=== PATIENT | female | born 1945 | race Two or more races ===

== ENCOUNTER 2016-09-06 13:49 | Inpatient (IN) | payer MEDICARE, MEDICAID ==
[~2016-09-06] VITALS: Ht 165.1 cm; Wt 61.2 kg
--- NOTE | 2016-09-06 22:45 | NUR ---
Received patient from [facility] sleeping, in a stable condition. Dx: Left hip fracture secondary to a fall. Accompanied by son, Derik. Patient has no s/s of distress, anxiety; denies pain at this time. Per son, patient took evening meds before discharge at [facility]. Admission care done to keep patient comfortable. Patient went back to sleep immediately after change of clothes, linen, diaper. Safety precautions likewise in place. V/S taken: 156/81, 71, 18, 97%. 97.8 F. Will continue to monitor.
[2016-09-06 23:24] VITALS: BP 156/81
--- NOTE | 2016-09-06 23:30 | NUR ---
Dr. Abreu made aware of patient's arrival. Ordered that med recon be done the next day and to leave medication list for checking/rechecking in the morning. Will endorse to day shift.
[2016-09-07] MEDS ORDERED: BLOO-360 IN (06:54)
[2016-09-07] MEDS ORDERED: ALBU2.5V7 IH (06:54)
[2016-09-07] MEDS ORDERED: METO-302 PO (06:54)
[2016-09-07] MEDS ORDERED: INSU100V28 SQ (06:54)
[2016-09-07] MEDS ORDERED: MAGN30OR PO (06:54)
[2016-09-07] MEDS ORDERED: MAG355OR18 PO (06:54)
[2016-09-07] MEDS ORDERED: ONDA4TAB5 IVP (06:54)
[2016-09-07] MEDS ORDERED: ASPI81TA2 PO (06:54)
[2016-09-07] MEDS ORDERED: ZOLP5TAB2 PO (06:54)
[2016-09-07] MEDS ORDERED: DULO30CA2 PO (06:54)
[2016-09-07] MEDS ORDERED: DEXT50DI8 IV (06:54)
[2016-09-07] MEDS ORDERED: ATOR40TA PO (06:54)
[2016-09-07] MEDS ORDERED: [UNRECOGNIZED DRUG - CODE] IV (06:54)
[2016-09-07] MEDS ORDERED: ENOX40DI SQ (06:54)
[2016-09-07] MEDS ORDERED: ACET-2154 PO (06:54)
[2016-09-07] MEDS ORDERED: HYDR-3651 PO (06:54)
[2016-09-07] MEDS ORDERED: ERGO2000 PO (06:54)
[2016-09-07] MEDS ORDERED: PANT40TA2 PO (06:54)
[2016-09-07] MEDS ORDERED: GABA100C PO ×3 (06:54)
[2016-09-07] MEDS ORDERED: ZINC113P2 TP (07:07)
[2016-09-07] MEDS ORDERED: [UNRECOGNIZED DRUG - CODE] IV (07:07)
--- NOTE | 2016-09-07 07:50 | NUR ---
Patient sleeping with no s/s of distress. Slept well throughout the night. Kept clean, dry and comfortable. No complaints of pain throughout the night. Admission procedure done. Safety measures in place. Monitored closely. TO obtained from Dr. Daniel around 0700. RBO. Med recon done. Endorsed accordingly.
--- NOTE | 2016-09-07 08:07 | NUR ---
Photos of skin assessment taken and placed in chart.
[2016-09-07 08:27] VITALS: BP 155/82
[2016-09-07] MEDS ORDERED: INSULIN REGULAR, HUMAN 300 UNIT/3 ML VIAL SQ PRN (10:00)
[2016-09-07] MEDS ORDERED: MAG HYDROX/AL HYDROX/SIMETH 30 ML LIQUID UDC PO PRN ×2 (10:00)
[2016-09-07] MEDS ORDERED: ONDANSETRON HCL 4 MG TABLET MC PRN (10:00)
[2016-09-07] MEDS ORDERED: ALBUTEROL SULFATE 2.5 MG/3 ML NEBU IH PRN (10:00)
[2016-09-07] MEDS ORDERED: ZOLPIDEM 5 MG TABLET PO PRN (10:00)
[2016-09-07] MEDS ORDERED: DEXTROSE 50% 50 ML DISP.SYRIN IV PRN (10:00)
[2016-09-07] MEDS ORDERED: ACETAMINOPHEN 325 MG TABLET PO PRN (10:00)
[2016-09-07] MEDS ORDERED: Z GUARD REMEDY PASTE 57 GM TUBE TOP PRN (10:00)
[2016-09-07] MEDS: GABAPENTIN 100 MG CAPSULE PO SCH ×3 (10:09→16:55)
[2016-09-07] MEDS: ASPIRIN 81 MG TAB.CHEW PO SCH (10:13)
[2016-09-07] MEDS: METOPROLOL SUCCINATE XL 25 MG TAB.SR.24H PO SCH (10:14)
[2016-09-07] MEDS: DULOXETINE 30 MG CAPSULE.DR PO SCH ×2 (10:16→16:47)
[2016-09-07] MEDS: ENOXAPARIN SODIUM 40 MG/0.4 ML DISP.SYRIN SQ SCH (10:17)
[2016-09-07] MEDS: PANTOPRAZOLE SODIUM 40 MG TABLET.DR PO SCH (10:18)
[2016-09-07] MEDS ORDERED: BLOOD SUGAR DIAGNOSTIC 1 EACH STRIP VI SCH (11:30)
[2016-09-07] MEDS ORDERED: DEXTROSE 50% 50 ML DISP.SYRIN IV SCH (11:30)
[2016-09-07] MEDS: BLOOD SUGAR DIAGNOSTIC 1 EACH STRIP VI SCH ×3 (12:34→21:58)
[2016-09-07] MEDS: HYDROCODONE/APAP 5-325MG TABLET PO PRN (12:35)
[2016-09-07] MEDS: INSULIN REGULAR, HUMAN 300 UNIT/3 ML VIAL SQ PRN ×2 (12:40→16:54)
[2016-09-07] MEDS ORDERED: ONDANSETRON 4 MG/2 ML VIAL IV PRN (17:15)
[2016-09-07] MEDS ORDERED: IV 1/2NS 1000 ML 1,000 ML IV PRN (17:15)
--- NOTE | 2016-09-07 17:28 | NUR ---
END OF SHIFT NOTES. PT A/OX1. V/S STABLE. NO S/S OF ACUTE DISTRESS. DAUGHTER REQUESTS TO HOLD GABAPENTIN. PT HAS POOR APPETITE. WANT IV FLUIDS CONTINUED. NOTIFIED PHARMACY OF ORDER.
--- NOTE | 2016-09-07 19:30 | NUR ---
Received patient awake with no s/s of distress. No complaints of pain at this time. Call light within reach. Placed in a position of comfort. Will continue to monitor.
[2016-09-07 20:00] VITALS: BP 146/74
[2016-09-07] MEDS: ATORVASTATIN 40 MG TABLET PO SCH (21:00)
--- NOTE | 2016-09-07 21:00 | NUR ---
Son Derik informed that MD orders for 1/2 NS 0.45% 1000ml PRN are inplace for the patient for insufficient oral intake. He pleasantly refused IVF, saying he doesn't think his mother needed it if he brought her home-cooked meals that he prepares himself. He stated she listens only to him and that she would eat when he feeds her. RN observed patient eating food brought by son for dinner. Son reported she consumed a lot.
[2016-09-07] MEDS ORDERED: PHENAZOPYRIDINE HCL 100 MG TABLET PO SCH (22:00)
--- NOTE | 2016-09-07 22:00 | NUR ---
Patient refused bedtime Lipitor despite explanation purpose of meds. Will continue to monitor.
--- NOTE | 2016-09-08 00:16 | NUR ---
Offered midnight snack. Patient refused, said she would wait for son Derik in the morning for food.
[2016-09-08] MEDS: PANTOPRAZOLE SODIUM 40 MG TABLET.DR PO SCH (06:31)
--- NOTE | 2016-09-08 06:56 | NUR ---
Patient sleeping with no s/s of distress, waking up only to take her morning meds. Slept well during the night. Promised to eat whatever son Derik brings for her to eat. Frequent checks done. Call light kept within reach. Endorsed accordingly.
[2016-09-08 08:12] VITALS: BP 160/92
[2016-09-08] MEDS ORDERED: GABAPENTIN 100 MG CAPSULE PO SCH (09:00)
[2016-09-08] MEDS ORDERED: IV 0.45% SODIUM CHLORIDE 1000 ML BAG IV SCH (09:00)
[2016-09-08] MEDS: METOPROLOL SUCCINATE XL 25 MG TAB.SR.24H PO SCH (09:28)
[2016-09-08] MEDS: ASPIRIN 81 MG TAB.CHEW PO SCH (09:28)
[2016-09-08] MEDS: DULOXETINE 30 MG CAPSULE.DR PO SCH ×2 (09:28→17:25)
[2016-09-08] MEDS: BLOOD SUGAR DIAGNOSTIC 1 EACH STRIP VI SCH ×4 (09:29→21:05)
[2016-09-08] MEDS: BOOST PLUS 237 ML LIQUID (RICH CHOCOLATE) PO SCH ×2 (09:29→20:06)
[2016-09-08] MEDS: INSULIN REGULAR, HUMAN 300 UNIT/3 ML VIAL SQ PRN ×4 (09:30→21:09)
[2016-09-08] MEDS: ENOXAPARIN SODIUM 40 MG/0.4 ML DISP.SYRIN SQ SCH (09:34)
--- NOTE | 2016-09-08 14:54 | NUR ---
WOUND CARE CONSULT: PT NOTED TO HAVE MULTIPLE HEALED AREAS ON BODY, ESPECIALLY EXTREMITIES. PT REPORTED THAT SHE PICKS AT HER SKIN. NO DRAINAGE NOTED. RT INNER ELBOW AREA HAS HEALING SKIN TEAR WITH BRUISING. RECOMMEND XEROFORM DSG AND KERLIX. DISCUSSED WITH NURSING STAFF. WILL SEE PRN. IN AGREEMENT WITH PLAN OF CARE.
--- NOTE | 2016-09-08 15:37 | NUR ---
Received patient from cook night, patient resting comfortably in bed. No signs of acute distress noted, respirations even and unlabored, O2 sat WNL via 3L O2 on NS. VS WNL, no other verbalized needs at this time. Safety precautions maintained, call light within reach.
--- NOTE | 2016-09-08 17:09 | NUR ---
IDT MEETING 09/08/16
--- NOTE | 2016-09-08 18:53 | NUR ---
pt was in pain 10/10 radiating at back and complains of stomach pain. given norco protonix. pt was confused and mumbled when engaged in conversation. pt knows time name and place. loc x 2. pt still refused to eat but when son came she ate a full cup. pt was helped by physical therapist to go to the bathroom and had a bowel movement. pt was evaluated by PT and OT due to high blood pressure, head ache and facial drooping. when pt was changed to a higher position and went to the bathroom, vitals and pain remained wnl. continued to monitor pt throughout shift.
[2016-09-08 20:27] VITALS: BP 146/73
[2016-09-08] MEDS: ATORVASTATIN 40 MG TABLET PO SCH (21:03)
[2016-09-08 23:51] VITALS: BP 146/73
[2016-09-09] MEDS: HYDROCODONE/APAP 5-325MG TABLET PO PRN ×2 (01:37→18:51)
--- NOTE | 2016-09-09 05:44 | NUR ---
PT SLEPT WELL THROUGH THE NIGHT AND WAS EASILY AWOKEN, PT WAS MOANING DURING THE NIGHT, ONE TIME MEDICATION WAS GIVEN AND WAS EFFECTIVE. PT DENIED HAVING ANY DIFFICULTY BREATHING, PT IS ON 3L NC SATURATING 100%. PT ATE 75% OF DINNER THAT HER SON BROUGHT, TOLERATED WELL NO S/S OF ASPIRATION. PT NEEDS MODERATE TO MAX ASSIST FOR ADL'S. ALL NEEDS MET, SAFETY MEASURES ARE IN PLACE CALL LIGHT WITHIN REACH, BED ALARM IS ON.
[2016-09-09] MEDS: PANTOPRAZOLE SODIUM 40 MG TABLET.DR PO SCH (06:28)
[2016-09-09] MEDS: BLOOD SUGAR DIAGNOSTIC 1 EACH STRIP VI SCH ×4 (06:34→21:04)
[2016-09-09 07:45] VITALS: BP 115/83
--- NOTE | 2016-09-09 08:01 | NUR ---
pt assessed. pt states no pain nor complains of any distress. pt is more alert but confused. vital signs assessed and showed no signs of complication. will continue to provide comfort measures interventions and medication regimen throughout shift.
[2016-09-09] MEDS: METOPROLOL SUCCINATE XL 25 MG TAB.SR.24H PO SCH (08:54)
[2016-09-09] MEDS: DULOXETINE 30 MG CAPSULE.DR PO SCH ×2 (08:54→17:23)
[2016-09-09] MEDS: ASPIRIN 81 MG TAB.CHEW PO SCH (08:54)
[2016-09-09] MEDS: ENOXAPARIN SODIUM 40 MG/0.4 ML DISP.SYRIN SQ SCH (08:55)
[2016-09-09] MEDS: INSULIN REGULAR, HUMAN 300 UNIT/3 ML VIAL SQ PRN ×4 (08:56→21:18)
[2016-09-09] MEDS: BOOST PLUS 237 ML LIQUID (RICH CHOCOLATE) PO SCH ×2 (08:56→17:47)
[2016-09-09 16:30] VITALS: BP 135/72
[2016-09-09 16:35] VITALS: BP 135/62
[2016-09-09 16:50] VITALS: BP 135/72
--- NOTE | 2016-09-09 19:27 | NUR ---
pt showed signs of pain such as grimacing 10/10. pt was assisted with toileting. pt was more alert and but confused. pt vital signs within normal limits and continued on medication regimen. patient was given maalox on suspicion of constipation because of small amount of bm with higher input and back pain. continued to assess pt. on complications.
[2016-09-09] MEDS: ATORVASTATIN 40 MG TABLET PO SCH (21:02)
[2016-09-09 21:41] VITALS: BP 126/67
[2016-09-10] MEDS: BLOOD SUGAR DIAGNOSTIC 1 EACH STRIP VI SCH ×4 (06:32→21:34)
[2016-09-10] MEDS: PANTOPRAZOLE SODIUM 40 MG TABLET.DR PO SCH (06:32)
--- NOTE | 2016-09-10 06:38 | NUR ---
Patient slept well throughout the night, had no complains of pain or discomfort. Had no signs of respiratory distress. Repositioned Q 2 hrs and as needed, maintained clean and dry, has call light within reach, all needs attended.
--- NOTE | 2016-09-10 07:10 | NUR ---
Patient received from budget accountant, resting comfortably in bed. No signs of acute distress noted, no verbalized needs at this time. Respirations even and unlabored, O2 sat WNL, O2 at 3L via NS. Safety precautions maintained, call light within reach.
[2016-09-10] MEDS ORDERED: GABAPENTIN 100 MG CAPSULE PO SCH (09:00)
[2016-09-10 09:17] VITALS: BP 156/98
[2016-09-10] MEDS: DULOXETINE 30 MG CAPSULE.DR PO SCH ×2 (09:40→17:13)
[2016-09-10] MEDS: METOPROLOL SUCCINATE XL 25 MG TAB.SR.24H PO SCH (09:40)
[2016-09-10] MEDS: ASPIRIN 81 MG TAB.CHEW PO SCH (09:40)
[2016-09-10] MEDS: ENOXAPARIN SODIUM 40 MG/0.4 ML DISP.SYRIN SQ SCH (09:43)
[2016-09-10] MEDS: INSULIN REGULAR, HUMAN 300 UNIT/3 ML VIAL SQ PRN ×4 (09:45→21:38)
[2016-09-10] MEDS: BOOST PLUS 237 ML LIQUID (RICH CHOCOLATE) PO SCH ×2 (09:58→18:19)
[2016-09-10] MEDS: DOCUSATE SODIUM 100 MG CAPSULE PO SCH ×2 (12:30→17:13)
[2016-09-10 20:41] VITALS: BP 154/88
[2016-09-10] MEDS: ATORVASTATIN 40 MG TABLET PO SCH (21:33)
[2016-09-11] MEDS: PANTOPRAZOLE SODIUM 40 MG TABLET.DR PO SCH (06:41)
[2016-09-11] MEDS: BLOOD SUGAR DIAGNOSTIC 1 EACH STRIP VI SCH ×4 (06:41→21:46)
--- NOTE | 2016-09-11 06:46 | NUR ---
Patient alert and able to let needs known. Patient had no complains of pain or discomfort throughout the night. Repositioned for comfort, maintained clean and dry throughout the night, will continue to monitor.
[2016-09-11 08:00] VITALS: BP 154/94
[2016-09-11] MEDS: DOCUSATE SODIUM 100 MG CAPSULE PO SCH ×2 (08:08→16:29)
[2016-09-11] MEDS: HYDROCODONE/APAP 5-325MG TABLET PO PRN (08:08)
[2016-09-11] MEDS: DULOXETINE 30 MG CAPSULE.DR PO SCH ×2 (08:09→16:29)
[2016-09-11] MEDS: METOPROLOL SUCCINATE XL 25 MG TAB.SR.24H PO SCH (08:09)
[2016-09-11] MEDS: ASPIRIN 81 MG TAB.CHEW PO SCH (08:09)
[2016-09-11] MEDS: ENOXAPARIN SODIUM 40 MG/0.4 ML DISP.SYRIN SQ SCH (08:11)
[2016-09-11] MEDS: INSULIN REGULAR, HUMAN 300 UNIT/3 ML VIAL SQ PRN ×3 (08:18→17:11)
--- NOTE | 2016-09-11 08:55 | NUR ---
Received patient, awake in bed. Awake and oriented. No s/s of distress. Tolerated breakfast well. Complained of pain rated as 8/10. PRN medications given.
[2016-09-11] MEDS: BOOST PLUS 237 ML LIQUID (RICH CHOCOLATE) PO SCH ×2 (10:03→16:30)
[2016-09-11 16:00] VITALS: BP 131/72
--- NOTE | 2016-09-11 19:30 | NUR ---
Received patient awake with no s/s of distress. Denies pain at this time. Call light within reach. Assured of frequent checks during shift. Will continue to monitor.
[2016-09-11] MEDS: ATORVASTATIN 40 MG TABLET PO SCH (21:00)
[2016-09-11 22:35] VITALS: BP 155/83
[2016-09-12] MEDS: PANTOPRAZOLE SODIUM 40 MG TABLET.DR PO SCH (06:04)
[2016-09-12] MEDS: BLOOD SUGAR DIAGNOSTIC 1 EACH STRIP VI SCH ×4 (07:30→21:38)
--- NOTE | 2016-09-12 07:37 | NUR ---
Patient sleeping with no s/s of distress, no complaints of pain. VS WNL during the shift. Call light kept within reach. Refused Lipitor and Protonix despite teaching. Encouraged fluid intake, snacks offered but refused. Kept clean, dry and comfortable. Safety and comfort measures in place. Endorsed accordingly.
--- NOTE | 2016-09-12 07:45 | NUR ---
Mary given per nurse's assessment. Patient slept well after intervention.
[2016-09-12] MEDS: BOOST PLUS 237 ML LIQUID (RICH CHOCOLATE) PO SCH ×2 (08:00→17:38)
[2016-09-12 08:11] VITALS: BP 146/87
[2016-09-12] MEDS: INSULIN REGULAR, HUMAN 300 UNIT/3 ML VIAL SQ PRN ×4 (09:02→21:39)
[2016-09-12] MEDS: HYDROCODONE/APAP 5-325MG TABLET PO PRN (10:39)
[2016-09-12] MEDS: ASPIRIN 81 MG TAB.CHEW PO SCH (10:40)
[2016-09-12] MEDS: DULOXETINE 30 MG CAPSULE.DR PO SCH ×2 (10:40→17:35)
[2016-09-12] MEDS: DOCUSATE SODIUM 100 MG CAPSULE PO SCH ×2 (10:40→17:36)
[2016-09-12] MEDS: ENOXAPARIN SODIUM 40 MG/0.4 ML DISP.SYRIN SQ SCH (11:03)
[2016-09-12] MEDS: METOPROLOL SUCCINATE XL 25 MG TAB.SR.24H PO SCH (11:04)
[2016-09-12 20:00] VITALS: BP 156/87
--- NOTE | 2016-09-12 20:00 | NUR ---
RECEIVED PATIENT AWAKE IN BED. A/O X2. FARSI SPEAKING BUT ABLE TO MAKE SIMPLE NEEDS KNOWN. DRESSING NOTED TO LEFT HIP, INTACT. DEANDRE ALSO NOTED, INTACT. SWELLING NOTED TO LEFT LEG. ICE APPLIED. BILATERAL LOWER FEET, SWOLLEN. PEDAL PULSES PRESENT. ON O2 2L NC 100%. NO RESP. DISTRESS NOTED. PATIENT REPOSITIONED TO COMFORT. HEELS OFF-LOADED. NO S/S OF PAIN OR DISCOMFORT. BP SLIGHTLY ELEVATED. WILL CONTINUE TO MONITOR. BED ALARM ON. CALL LIGHT IN REACH. ALL NEEDS ATTENDED, WILL CONTINUE TO MONITOR.
[2016-09-12] MEDS: ATORVASTATIN 40 MG TABLET PO SCH (21:38)
[2016-09-12 22:00] VITALS: BP 140/70
--- NOTE | 2016-09-12 22:00 | NUR ---
PATIENT AWAKE IN BED. FACIAL GRIMACING NOTED. WHEN PATIENT ASKED IN FARSI IF PAIN IS PRESENT, PATIENT STATED, "YES AND NODS HEAD." PATIENT GIVEN TYLENOL 650MG PO PRN ORDERED. ICE APPLIED TO LEFT HIP AND REPOSITIONED TO SIDE FOR COMFORT AND PRESSURE RELIEF. WILL CONTINUE TO MONITOR. Addendum: 09/13/16 at 0548 by JAYDON SOLIZ LVN CLARIFICATION. PATIENT GIVEN TYLENOL 500MG PO PRN.
[2016-09-12] MEDS: ACETAMINOPHEN 325 MG TABLET PO PRN (22:01)
[2016-09-12] MEDS ORDERED: ACETAMINOPHEN ES 500 MG TABLET ONE (22:06)
--- NOTE | 2016-09-12 22:30 | NUR ---
PATIENT RESTING. APPEARS COMFORTABLE. VSS. NO C/O PAIN OR DISCOMFORT. WILL CONTINUE TO MONITOR AND ASSESS.
[2016-09-13] MEDS: PANTOPRAZOLE SODIUM 40 MG TABLET.DR PO SCH ×2 (06:20→06:58)
[2016-09-13] MEDS: BLOOD SUGAR DIAGNOSTIC 1 EACH STRIP VI SCH ×4 (06:22→21:20)
[2016-09-13] MEDS: ACETAMINOPHEN 325 MG TABLET PO PRN ×3 (06:24→17:33)
--- NOTE | 2016-09-13 06:29 | NUR ---
PATIENT AWAKE IN BED. FACIAL GRIMACING AND GUARDING MID-LOWER ABDOMEN. NON-DISTENDED AND SOFT TO TOUCH. PATIENT GIVEN TYLENOL 650MG PO PRN FOR PAIN. DRESSING NOTED TO LEFT HIP, CHANGED. CLEAN, DRY AND INTACT. SLEPT WELL THROUGHOUT THE NIGHT. BED ALARM ON. CALL LIGHT IN REACH. ALL NEEDS ATTENDED. WILL CONTINUE TO MONITOR.
[2016-09-13] MEDS ORDERED: ACETAMINOPHEN ES 500 MG TABLET ONE (06:34)
[2016-09-13 08:00] VITALS: BP 153/86
--- NOTE | 2016-09-13 08:00 | NUR ---
Awake, alert x 2. Repositioned in bed comfortably. o2 at 2L/NC
[2016-09-13] MEDS: DOCUSATE SODIUM 100 MG CAPSULE PO SCH ×2 (09:06→17:32)
[2016-09-13] MEDS: ASPIRIN 81 MG TAB.CHEW PO SCH (09:06)
[2016-09-13] MEDS: DULOXETINE 30 MG CAPSULE.DR PO SCH ×2 (09:06→17:33)
[2016-09-13] MEDS: ERGOCALCIFEROL 50,000 UNIT CAPSULE PO SCH (09:07)
[2016-09-13] MEDS: METOPROLOL SUCCINATE XL 25 MG TAB.SR.24H PO SCH (09:07)
[2016-09-13] MEDS: ENOXAPARIN SODIUM 40 MG/0.4 ML DISP.SYRIN SQ SCH (09:11)
[2016-09-13] MEDS: BOOST PLUS 237 ML LIQUID (RICH CHOCOLATE) PO SCH ×2 (09:16→17:37)
[2016-09-13] MEDS: INSULIN REGULAR, HUMAN 300 UNIT/3 ML VIAL SQ PRN ×3 (13:04→21:32)
--- NOTE | 2016-09-13 17:00 | NUR ---
Assisted to the commode. Had BM to formed stool. Kept dry and comfortable
[2016-09-13 20:00] VITALS: BP 148/78
[2016-09-13] MEDS: ATORVASTATIN 40 MG TABLET PO SCH (21:18)
--- NOTE | 2016-09-14 05:33 | NUR ---
PT IN BED SLEEPING, AROUSABLE TO TOUCH AND NAME, IN NO ACUTE SIGNS OF DISTRESS. BLOOD SUGAR CHECKED LAST NIGHT, RESULT WAS 147 AND WAS GIVEN 2 UNITS OF INSULIN PER SLIDING SCALE. SAFETY MAINTAINED. BED ALARM. CALL LIGHT WITHIN REACH.
[2016-09-14] MEDS: PANTOPRAZOLE SODIUM 40 MG TABLET.DR PO SCH (06:07)
[2016-09-14] MEDS: BLOOD SUGAR DIAGNOSTIC 1 EACH STRIP VI SCH ×4 (06:36→21:54)
--- NOTE | 2016-09-14 07:00 | NUR ---
LEFT HIP SURGICAL DRESSING CHANGED PRN. SITE DRY AND INTACT.
[2016-09-14] MEDS: BOOST PLUS 237 ML LIQUID (RICH CHOCOLATE) PO SCH ×2 (08:00→17:40)
[2016-09-14] MEDS: ASPIRIN 81 MG TAB.CHEW PO SCH (08:54)
[2016-09-14] MEDS: DULOXETINE 30 MG CAPSULE.DR PO SCH ×2 (08:57→17:29)
[2016-09-14] MEDS: DOCUSATE SODIUM 100 MG CAPSULE PO SCH ×2 (08:57→17:29)
[2016-09-14] MEDS: METOPROLOL SUCCINATE XL 25 MG TAB.SR.24H PO SCH (08:57)
[2016-09-14] MEDS: ENOXAPARIN SODIUM 40 MG/0.4 ML DISP.SYRIN SQ SCH (08:58)
[2016-09-14] MEDS: ACETAMINOPHEN ES 500 MG TABLET PO PRN ×2 (10:05→14:24)
[2016-09-14 11:06] VITALS: BP 143/89
[2016-09-14] MEDS: INSULIN REGULAR, HUMAN 300 UNIT/3 ML VIAL SQ PRN ×3 (12:37→21:57)
--- NOTE | 2016-09-14 14:30 | NUR ---
Patient complained of pain rated as 6/10. Tylenol PRN given. O2 still at 2 LPM. O2 sat at 92%. No other complaints at this time. Changed dressing over surgical site and over Left upper leg done.
--- NOTE | 2016-09-14 15:33 | NUR ---
Received patient asleep in bed. No S/S of distress. Call light within reach. Ensured safety. Will continue to monitor.
[2016-09-14 20:00] VITALS: BP 130/74
[2016-09-14] MEDS: ATORVASTATIN 40 MG TABLET PO SCH (21:15)
[2016-09-15] MEDS: PANTOPRAZOLE SODIUM 40 MG TABLET.DR PO SCH (06:48)
[2016-09-15] MEDS: BLOOD SUGAR DIAGNOSTIC 1 EACH STRIP VI SCH ×4 (06:51→21:10)
--- NOTE | 2016-09-15 06:56 | NUR ---
Patient alert and verbally able to let needs known, slept intermittently throughout the night. Repositioned Q 2hrs and as needed, maintained clean and dry throughout the night. Dressing change done on surgical site, left leg still noted with edema. nick intact on 3 sites. Showed no signs of pain or discomfort, no signs of respiratory distress noted. Patient has call light within reach, will continue to monitor.
--- NOTE | 2016-09-15 07:45 | NUR ---
RECEIVED PATIENT IN BED ALERT ORIENTED COOPERATIVE ASSISTED WITH SET UP OF HER BREAKFAST AND SHE IS FEEDING SELF.DUE INSULIN PER SLIDING SCALE COVERAGE GIVEN NO S/S OF HYPO/HYPERGLYCEMIC REACTIONS AT THIS TIME.
[2016-09-15] MEDS: INSULIN REGULAR, HUMAN 300 UNIT/3 ML VIAL SQ PRN ×4 (07:50→21:12)
[2016-09-15 08:00] VITALS: BP 161/89
[2016-09-15] MEDS: ASPIRIN 81 MG TAB.CHEW PO SCH (09:05)
[2016-09-15] MEDS: DOCUSATE SODIUM 100 MG CAPSULE PO SCH ×2 (09:05→16:49)
[2016-09-15] MEDS: DULOXETINE 30 MG CAPSULE.DR PO SCH ×2 (09:05→17:03)
[2016-09-15] MEDS: METOPROLOL SUCCINATE XL 25 MG TAB.SR.24H PO SCH (09:06)
[2016-09-15] MEDS: ENOXAPARIN SODIUM 40 MG/0.4 ML DISP.SYRIN SQ SCH (09:13)
[2016-09-15] MEDS: BOOST PLUS 237 ML LIQUID (RICH CHOCOLATE) PO SCH ×2 (09:14→16:56)
[2016-09-15] MEDS: ACETAMINOPHEN ES 500 MG TABLET PO PRN (10:06)
[2016-09-15 11:00] VITALS: BP 134/71
--- NOTE | 2016-09-15 13:47 | NUR ---
Cook Helper [employer] SW met with patient at beside to assess pt needs and provide support. The patient is a 71 year old [place] female admitted for hip fracture. The patient was laying in her bed. She was calm and cooperative during the interview. Per pt, she lives at home with her son Derik Hale and receives care from a electronics parts sales representative caregiver 6 hours per day. The patient stated that she has positive social support at home. SW engaged in active listening and provided supportive counseling during the interview. SW will be available as needed.
--- NOTE | 2016-09-15 14:17 | NUR ---
IDT MEETING 09/15/16
[2016-09-15 16:23] VITALS: BP 152/87
--- NOTE | 2016-09-15 18:00 | NUR ---
NEW ORDERS NOTED FROM DR MOYA FOR CT HEAD NEURO EVAL,AND TO FOLLOW UP WITH PATIENTS SURGEON GHASSAN RUDOLPH RE STAPLE REMOVAL WILL ENDORSE TO CALL DR RUDOLPH IN AM
--- NOTE | 2016-09-15 18:42 | NUR ---
O2 REMOVED AND SATURATION CHECKED AFTER 15 MINS AND THE READING IS 87% SO O2 REAPPLIED AT 3L/M AND WILL CONTINUE TO OBSERVE.NO SHORTNESS OF BREATH AT THIS TIME.
--- NOTE | 2016-09-15 19:15 | NUR ---
RECEIVED PT., CT SCAN OF HEAD DONE. DENIES PAIN. L KNEE, L THIGH, & L HIP INCISION W/ DEANDRE INTACT & INCISIONS ARE DRY & INTACT.. ON O2 @ 2LNC NOT IN ANY DISTRESS. PT IS ALERT & FOLLOWS TO COMMAND. REPOSITIONED ON HER W/ HOB ELEVATED.
[2016-09-15 20:07] VITALS: BP 147/80
[2016-09-15] MEDS: ATORVASTATIN 40 MG TABLET PO SCH (20:47)
--- NOTE | 2016-09-16 05:45 | NUR ---
AM CARE DONE. CHANGED DIAPER FOR INCONTINENT OF URINE, NO BM NOTED.REPOSITIONED ON HER R SIDE W/ HOB ELEVATED. REMAINS ON O2 @2L NC.NOT IN ANY DISTRESS.
[2016-09-16] MEDS: PANTOPRAZOLE SODIUM 40 MG TABLET.DR PO SCH (06:24)
[2016-09-16 06:58] LABS: BASOPHILS # (AUTO) 0.2 K/uL (0.0-8.0); BASOPHILS % (AUTO) 3.2 % (0.0-2.0); EOSINOPHILS # (AUTO) 0.1 K/uL (0.0-0.7); EOSINOPHILS % (AUTO) 2.9 % (0.0-7.0); HEMATOCRIT 33.9 % (37-47); HEMOGLOBIN 10.5 G/DL (12.0-16.0); LYMPHOCYTES # (AUTO) 0.7 K/UL (0.8-4.8); LYMPHOCYTES % (AUTO) 13.6 % (20.5-51.5); MEAN CORPUSCULAR HEMOGLOBIN 28.3 UUG (27.0-31.0); MEAN CORPUSCULAR HGB CONC 31 g/dL (32.0-37.0); MEAN CORPUSCULAR VOLUME 91.1 FL (81.0-99.0); MONOCYTES # (AUTO) 0.4 K/UL (0.1-1.30); MONOCYTES % (AUTO) 8.8 % (0.0-11.0); NEUTROPHILS # (AUTO) 3.5 K/UL (1.8-8.9); NEUTROPHILS % (AUTO) 71.5 % (38.5-71.5); PLATELET COUNT (AUTO) 223 K/UL (150-450); RED BLOOD CELL COUNT(AUTO) 3.72 MIL/UL (4.2-5.4); WHITE BLOOD COUNT (AUTO) 4.9 K/UL (4.0-11.2)
[2016-09-16 07:22] LABS: BILIRUBIN,TOTAL 1.4 mg/dL (0.2-1.0); CREATININE 0.9 mg/dL (0.6-1.3); POTASSIUM 3.3 mmol/L (3.5-5.1); TOTAL PROTEIN, SERUM 6.6 g/dL (6.4-8.2)
[2016-09-16] MEDS: BLOOD SUGAR DIAGNOSTIC 1 EACH STRIP VI SCH ×4 (07:28→20:44)
[2016-09-16] MEDS: INSULIN REGULAR, HUMAN 300 UNIT/3 ML VIAL SQ PRN ×4 (07:58→20:46)
[2016-09-16] MEDS: METOPROLOL SUCCINATE XL 25 MG TAB.SR.24H PO SCH (08:00)
[2016-09-16] MEDS: DOCUSATE SODIUM 100 MG CAPSULE PO SCH ×2 (08:00→16:00)
[2016-09-16] MEDS: ASPIRIN 81 MG TAB.CHEW PO SCH (08:00)
[2016-09-16] MEDS: DULOXETINE 30 MG CAPSULE.DR PO SCH ×2 (08:00→16:00)
[2016-09-16] MEDS: ENOXAPARIN SODIUM 40 MG/0.4 ML DISP.SYRIN SQ SCH (08:02)
[2016-09-16] MEDS: BOOST PLUS 237 ML LIQUID (RICH CHOCOLATE) PO SCH ×3 (08:12→17:57)
[2016-09-16 09:21] VITALS: BP 158/95
[2016-09-16] MEDS: ACETAMINOPHEN ES 500 MG TABLET PO PRN (10:26)
[2016-09-16] MEDS ORDERED: POTASSIUM CHLORIDE 20 MEQ TAB.PRT.SR PO ONE (11:00)
[2016-09-16 11:27] LABS: THYROID STIMULATING HORMONE 2.493 mIU/mL (0.358-3.740)
[2016-09-16] MEDS: METFORMIN HCL 500 MG TABLET PO SCH ×3 (11:39→17:56)
--- NOTE | 2016-09-16 13:38 | NUR ---
OK FOR MRI. SPOKE TO ESTHER TO SHIP THE PATIENT TO [facility] [address] [facility]. MRI TRAILER IN THE BACK.HAVE THE MRI CHECKLIST READY TO COME WITH PATIENT.AMBULANCE PICKUP AT 4.00PM FOR TABLE TIME 4.30PM.IF ANY CHANGES PLEASE CALL [facility] [phone].
[2016-09-16 14:36] LABS: MAGNESIUM 1.8 mg/dL (1.8-2.4); PHOSPHOROUS 2.8 mg/dL (2.5-4.9)
--- NOTE | 2016-09-16 16:14 | NUR ---
EMS transport in the unit to take patient [facility] for an MRI of the brain wo contrast as ordered by neurologist this morning. Patient with vitals stable no c/o any discomfort at this time.
--- NOTE | 2016-09-16 16:15 | NUR ---
Accu- check of 277 not covered. patient been sweet pickle maker at this time for MRI going to [facility].
--- NOTE | 2016-09-16 17:09 | NUR ---
meds not administered patient out of the unit for an MRI of the brain.
[2016-09-16 20:07] VITALS: BP 147/78
[2016-09-16] MEDS: ATORVASTATIN 40 MG TABLET PO SCH (20:45)
--- NOTE | 2016-09-16 21:00 | NUR ---
NSG: Patient alert and verbally able to let needs known,Repositioned Q 2hrs and as needed, maintained clean and dry throughout the night. , left leg noted with edema. nick intact on 3 sites. Showed no signs of pain or discomfort, no signs of respiratory distress noted. COMPLIANT WITH MEDS. Patient has call light within reach, will continue to monitoring for safety.
[2016-09-17] MEDS: PANTOPRAZOLE SODIUM 40 MG TABLET.DR PO SCH (06:23)
[2016-09-17] MEDS: BLOOD SUGAR DIAGNOSTIC 1 EACH STRIP VI SCH ×4 (06:54→21:06)
--- NOTE | 2016-09-17 07:06 | NUR ---
NSG: Patient alert and verbally able to let needs known,Patient slept intermittently throughout the night. Repositioned Q 2hrs and as needed, maintained clean and dry throughout the night. Dressing change done on surgical site, left leg still noted with edema. nick intact on 3 sites. Showed no signs of pain or discomfort, no signs of respiratory distress noted. Patient has call light within reach, will continue to monitor.continue plan of care.
[2016-09-17 08:00] VITALS: BP 151/87
[2016-09-17] MEDS: ASPIRIN 81 MG TAB.CHEW PO SCH (08:55)
[2016-09-17] MEDS: METOPROLOL SUCCINATE XL 25 MG TAB.SR.24H PO SCH (08:55)
[2016-09-17] MEDS: DULOXETINE 30 MG CAPSULE.DR PO SCH ×2 (08:55→16:57)
[2016-09-17] MEDS: METFORMIN HCL 500 MG TABLET PO SCH ×2 (08:56→17:02)
[2016-09-17] MEDS: ENOXAPARIN SODIUM 40 MG/0.4 ML DISP.SYRIN SQ SCH (08:56)
[2016-09-17] MEDS: DOCUSATE SODIUM 100 MG CAPSULE PO SCH ×2 (08:56→16:57)
[2016-09-17] MEDS: BOOST PLUS 237 ML LIQUID (RICH CHOCOLATE) PO SCH ×2 (08:57→16:57)
[2016-09-17] MEDS: INSULIN REGULAR, HUMAN 300 UNIT/3 ML VIAL SQ PRN ×3 (12:53→21:07)
[2016-09-17] MEDS: ACETAMINOPHEN ES 500 MG TABLET PO PRN (16:59)
[2016-09-17 20:26] VITALS: BP 138/81
[2016-09-17] MEDS: ATORVASTATIN 40 MG TABLET PO SCH (21:03)
--- NOTE | 2016-09-18 05:43 | NUR ---
nsg: pt slept intermittently throughout the night, had a nightmare, talking and crying in her sleep. pt awake now. denies discomfort. all needs attended. kept clean and dry.
[2016-09-18] MEDS: PANTOPRAZOLE SODIUM 40 MG TABLET.DR PO SCH (06:26)
[2016-09-18] MEDS: ACETAMINOPHEN ES 500 MG TABLET PO PRN ×3 (06:26→23:12)
[2016-09-18] MEDS: BLOOD SUGAR DIAGNOSTIC 1 EACH STRIP VI SCH ×4 (07:09→21:24)
[2016-09-18 08:00] VITALS: BP 155/96
[2016-09-18] MEDS: BOOST PLUS 237 ML LIQUID (RICH CHOCOLATE) PO SCH ×2 (08:00→16:22)
[2016-09-18] MEDS: DOCUSATE SODIUM 100 MG CAPSULE PO SCH ×2 (08:19→16:22)
[2016-09-18] MEDS: DULOXETINE 30 MG CAPSULE.DR PO SCH ×2 (08:19→16:22)
[2016-09-18] MEDS: METFORMIN HCL 500 MG TABLET PO SCH ×2 (08:19→18:32)
[2016-09-18] MEDS: ASPIRIN 81 MG TAB.CHEW PO SCH (08:19)
[2016-09-18] MEDS: METOPROLOL SUCCINATE XL 25 MG TAB.SR.24H PO SCH (08:20)
[2016-09-18] MEDS: ENOXAPARIN SODIUM 40 MG/0.4 ML DISP.SYRIN SQ SCH (08:21)
[2016-09-18] MEDS: INSULIN REGULAR, HUMAN 300 UNIT/3 ML VIAL SQ PRN ×2 (12:00→21:28)
--- NOTE | 2016-09-18 19:30 | NUR ---
PT RESTING IN BED. NO DISTRESS NOTED AT THIS TIME. TURNED AND REPOSITIONED. CLEAN AND DRY. WILL CONTINUE TO MONITOR.
[2016-09-18 20:30] VITALS: BP 167/95
--- NOTE | 2016-09-18 20:30 | NUR ---
PLACED CALL FOR TANK WAGON OPERATOR , BP 167/95. AWAITING CALL BACK.
[2016-09-18] MEDS: ATORVASTATIN 40 MG TABLET PO SCH (21:30)
[2016-09-18 21:57] VITALS: BP 146/92
--- NOTE | 2016-09-18 22:00 | NUR ---
PT COMPLAINING OF UPSET STOMACH, MAALOX GIVEN ORDERED. RECHECKED BP 146/92. WILL CONTINUE TO MONITOR.
[2016-09-19] MEDS: PANTOPRAZOLE SODIUM 40 MG TABLET.DR PO SCH (06:27)
[2016-09-19] MEDS: BLOOD SUGAR DIAGNOSTIC 1 EACH STRIP VI SCH ×4 (06:51→21:55)
--- NOTE | 2016-09-19 07:09 | NUR ---
PT RESTING IN BED. NO DISTRESS NOTED. BS 137. NO SOB NOTED. CLEAN AND DRY. TURNED AND REPOSITIONED. SAFETY MAINTAINED. CALL LIGHT WITHIN REACH.
[2016-09-19 08:00] VITALS: BP 146/76
--- NOTE | 2016-09-19 08:00 | NUR ---
Pt is in no acute distress. Pt confused at times. Left hip surgical site with redness and still nick covered with surgical dressing. Multiple wounds noted on body. Call light is within reach.
[2016-09-19] MEDS: METFORMIN HCL 500 MG TABLET PO SCH ×2 (08:21→16:30)
[2016-09-19] MEDS: DOCUSATE SODIUM 100 MG CAPSULE PO SCH ×2 (08:21→16:29)
[2016-09-19] MEDS: ASPIRIN 81 MG TAB.CHEW PO SCH (08:21)
[2016-09-19] MEDS: DULOXETINE 30 MG CAPSULE.DR PO SCH ×2 (08:22→16:30)
[2016-09-19] MEDS: METOPROLOL SUCCINATE XL 25 MG TAB.SR.24H PO SCH (08:22)
[2016-09-19] MEDS: ENOXAPARIN SODIUM 40 MG/0.4 ML DISP.SYRIN SQ SCH (08:24)
[2016-09-19] MEDS: INSULIN REGULAR, HUMAN 300 UNIT/3 ML VIAL SQ PRN ×2 (08:25→21:58)
[2016-09-19] MEDS: BOOST PLUS 237 ML LIQUID (RICH CHOCOLATE) PO SCH ×2 (08:32→16:30)
--- NOTE | 2016-09-19 10:00 | NUR ---
Spoke with Dr HERNANDEZ notified of pt constant elevated b/p's with trends of SBP of 140's and 150's. New order received and carried out. Call light is within reach.
[2016-09-19] MEDS ORDERED: METOPROLOL SUCCINATE XL 25 MG TAB.SR.24H PO ONE (10:45)
--- NOTE | 2016-09-19 12:19 | NUR ---
BRIEF NOTE RN CALLED REQUESTING PT RECEIVE A SUPPLEMENT D/T POOR PO INTAKE, STATED THAT SHE WOULD ENTER ORDER BASED ON RD RECOMMENDATION. PER CHART, PT WITH ORDER FOR BOOST GLUCOSE BID, RECOMMEND TO INCREASE TO TID, D/W RN. RN TO PLACE ORDER FOR PT TO RECEIVE BOOST GLUCOSE CONTROL TID. WILL F/U WITH DIET OFFICE TO ENSURE PT RECEIVES SUPPLEMENT TID. Addendum: 09/19/16 at [address] Amended: Links added.
--- NOTE | 2016-09-19 18:03 | NUR ---
Pt is in no acute distress. Pt had a bm today. Call light is within reach.
--- NOTE | 2016-09-19 19:30 | NUR ---
RECEIVED PATIENT AWAKE, ALERT AND ORIENTED TO NAME AND PLACE TONIGHT. IN NAD AT PRESENT. NO C/O PAIN. IN DIAPERS, CLEAN AND DRY.OFFERED PM SNACK BUT REFUSED AT THIS TIME.SEEMS TO HAVE MORE CLARITY AND ALERTNESS TONIGHT OVER YESTERDAY.CALL LIT WITHIN REACH AAT. BED ALARM ON.ANSWERED ALL QUESTIONS. APEARS TO BE MORE CONVERSANT TONIGHT.
[2016-09-19 20:47] VITALS: BP 157/67
[2016-09-19] MEDS: ATORVASTATIN 40 MG TABLET PO SCH (21:52)
--- NOTE | 2016-09-20 05:56 | NUR ---
PATIENT SLEPT ONLY A FEW HOURS TONIGHT. NO C/O PAIN OR SOB ON ROOM AIR.INCONTINENT IN DIAPERS. KEPT CLEAN AND DRY THROUGH THE SHIFT.APPEARS MORE COHERENT TONIGHT . ABLE TO KNOW HER NAME AND NAME OF THE HOSPITAL. MORE CLEAR IN HER CONVERSATION ALSO. COMFORTABLE THIS MORNING. CALL LIGHT WITHIN REACH AAT. BED ALARM ON. ALL NEEDS MET. SAFETY AND COMFORT MAINTAINED
[2016-09-20] MEDS: PANTOPRAZOLE SODIUM 40 MG TABLET.DR PO SCH (06:24)
[2016-09-20] MEDS: BLOOD SUGAR DIAGNOSTIC 1 EACH STRIP VI SCH ×4 (06:59→21:27)
[2016-09-20 07:23] VITALS: BP 156/88
--- NOTE | 2016-09-20 08:00 | NUR ---
Pt is in no acute distress. Encouraged pt to get oob for physical therapy today. Pt OOB in wheelchair with max assist of two. Ecouraged pt to dring her glucose control since pt has poor appetite. Call light is within reach.
[2016-09-20] MEDS: METFORMIN HCL 500 MG TABLET PO SCH ×2 (08:07→17:08)
[2016-09-20] MEDS: DOCUSATE SODIUM 100 MG CAPSULE PO SCH ×2 (08:07→17:08)
[2016-09-20] MEDS: ASPIRIN 81 MG TAB.CHEW PO SCH (08:07)
[2016-09-20] MEDS: ERGOCALCIFEROL 50,000 UNIT CAPSULE PO SCH (08:08)
[2016-09-20] MEDS: DULOXETINE 30 MG CAPSULE.DR PO SCH ×2 (08:08→17:08)
[2016-09-20] MEDS: METOPROLOL SUCCINATE XL 50 MG TAB.SR.24H PO SCH (08:08)
[2016-09-20] MEDS: ENOXAPARIN SODIUM 40 MG/0.4 ML DISP.SYRIN SQ SCH (08:09)
[2016-09-20] MEDS: BOOST PLUS 237 ML LIQUID (RICH CHOCOLATE) PO SCH ×2 (08:11→17:13)
--- NOTE | 2016-09-20 11:58 | NUR ---
Dressing changed on left hip surgical incision x 3 sections with nick. Pt continues to pick on her wounds on right arm. Pt has multiple wounds all over her body. Pt is in no acute distress. Pt sitting in chair. Call light is within reach.
[2016-09-20] MEDS: INSULIN REGULAR, HUMAN 300 UNIT/3 ML VIAL SQ PRN ×3 (12:01→21:42)
[2016-09-20] MEDS: ACETAMINOPHEN ES 500 MG TABLET PO PRN (17:46)
--- NOTE | 2016-09-20 19:30 | NUR ---
RECEIVED PATIENT RESTING QUIETLY IN BED IN NO APPARENT DISTRESS. O2 SAT RECHECK DONE / NOW 93%. NON PRODUCTIVE COUGH.NO RESPIRATORY DISTRESS NOTED.LEFT LEG WITH DRESSING DRY AND INTACT. LEFT LEG IS SWOLLEN FROM HIP TO FOOT. ELEVATED ON PILLOW. CALL LIGHT WITHIN REACH AND BED ALARM ON AAT.
[2016-09-20 20:17] VITALS: BP 129/77
[2016-09-20] MEDS ORDERED: ATORVASTATIN 40 MG TABLET PO SCH (21:00)
[2016-09-20] MEDS: ATORVASTATIN 20 MG TABLET PO SCH (21:22)
[2016-09-20] MEDS: LISINOPRIL 5 MG TABLET PO SCH (21:24)
--- NOTE | 2016-09-21 02:00 | NUR ---
INCONTINENT OF SOFT BROWN BM. SPONGE BATH GIVEN. LEFT HIP DRESSING CHANGED WITH TELFA DRESSING APPLIED. SITE IS WITH DEANDRE AND AREA SURROUNDING INCISION IS PINK, SWOLLEN BUT WITHOUT DRAINAGE. C/O LEFT HIP PAIN WITH REPOSITIONING. MEDICATED WITH TYLENOL ES X1 TAB WITH GOOD RELIEF
[2016-09-21] MEDS: ACETAMINOPHEN ES 500 MG TABLET PO PRN ×2 (02:44→13:48)
--- NOTE | 2016-09-21 05:56 | NUR ---
SLEPT BETTER TONIGHT. MEDICATED X1 FOR C/O LEFT HIP DISCOMFORT WITH TYLENOL, WITH GOOD RELIEF. APPEARS TO BE LESS COMMUNICATIVE TONIGHT THAN YESTERDAY. ONLY ORIENTED TO NAME. REORIENTED FREQUENTLY.POOR APPETITE, REFUSING PM SNACK.NO SIGNS OF HYPOGLYCEMIA NOTED. CALL LIGHT WITHIN REACH. BED ALARM ON
[2016-09-21] MEDS: PANTOPRAZOLE SODIUM 40 MG TABLET.DR PO SCH (06:39)
[2016-09-21] MEDS: BLOOD SUGAR DIAGNOSTIC 1 EACH STRIP VI SCH ×4 (06:42→21:24)
[2016-09-21] MEDS: BOOST PLUS 237 ML LIQUID (RICH CHOCOLATE) PO SCH ×2 (07:42→17:06)
[2016-09-21] MEDS: METFORMIN HCL 500 MG TABLET PO SCH ×2 (07:43→17:37)
[2016-09-21] MEDS: INSULIN REGULAR, HUMAN 300 UNIT/3 ML VIAL SQ PRN ×3 (07:45→21:26)
[2016-09-21 08:00] VITALS: BP 152/82
[2016-09-21] MEDS: ASPIRIN 81 MG TAB.CHEW PO SCH (08:03)
[2016-09-21] MEDS: DOCUSATE SODIUM 100 MG CAPSULE PO SCH ×2 (08:03→17:06)
[2016-09-21] MEDS: DULOXETINE 30 MG CAPSULE.DR PO SCH ×2 (08:03→17:07)
[2016-09-21] MEDS: LISINOPRIL 5 MG TABLET PO SCH ×2 (08:04→21:24)
[2016-09-21] MEDS: METOPROLOL SUCCINATE XL 50 MG TAB.SR.24H PO SCH (08:04)
[2016-09-21] MEDS: ENOXAPARIN SODIUM 40 MG/0.4 ML DISP.SYRIN SQ SCH (08:05)
[2016-09-21 08:15] LABS: BASOPHILS % (AUTO) 0.3 % (0.0-2.0); EOSINOPHILS # (AUTO) 0.1 K/uL (0.0-0.7); HEMOGLOBIN 12.1 G/DL (12.0-16.0); LYMPHOCYTES # (AUTO) 0.7 K/UL (0.8-4.8); LYMPHOCYTES % (AUTO) 9.9 % (20.5-51.5); MEAN CORPUSCULAR HEMOGLOBIN 29.8 UUG (27.0-31.0); MEAN CORPUSCULAR HGB CONC 33 g/dL (32.0-37.0); MEAN CORPUSCULAR VOLUME 91.3 FL (81.0-99.0); MONOCYTES # (AUTO) 0.4 K/UL (0.1-1.30); MONOCYTES % (AUTO) 6.6 % (0.0-11.0); NEUTROPHILS # (AUTO) 5.4 K/UL (1.8-8.9); NEUTROPHILS % (AUTO) 81.2 % (38.5-71.5); PLATELET COUNT (AUTO) 215 K/UL (150-450); RED BLOOD CELL COUNT(AUTO) 4.06 MIL/UL (4.2-5.4)
--- NOTE | 2016-09-21 08:17 | NUR ---
RECEIVED PATIENT AWAKE IN BED. ORIENTED TO NAME ONLY. NO S/S OF DISTRESS, NO COMPLAINTS OR SIGNS OF DISCOMFORT NOTED. WAS ABLE TO EAT WITH MINIMAL ASSISTANCE, TOLERATED DIET WELL.
[2016-09-21 08:25] LABS: WHITE BLOOD COUNT (AUTO) 6.6 K/UL (4.0-11.2)
[2016-09-21 08:37] LABS: BILIRUBIN,TOTAL 1.6 mg/dL (0.2-1.0); CREATININE 1.1 mg/dL (0.6-1.3); MAGNESIUM 1.8 mg/dL (1.8-2.4); PHOSPHOROUS 2.8 mg/dL (2.5-4.9); TOTAL PROTEIN, SERUM 6.9 g/dL (6.4-8.2)
--- NOTE | 2016-09-21 19:15 | NUR ---
Received report from FRIDA Rodríguez
[2016-09-21 20:00] VITALS: BP 141/79
--- NOTE | 2016-09-21 21:00 | NUR ---
Assessment done, pt asleep but easily arousable, alert to self , place and occasionally forgetful but coherent. Turned and repositioned.Took pills w/o difficulty.Denies any pain, dressing at left hip CDI.
[2016-09-21] MEDS: ATORVASTATIN 20 MG TABLET PO SCH (21:28)
[2016-09-22] MEDS: PANTOPRAZOLE SODIUM 40 MG TABLET.DR PO SCH (06:38)
--- NOTE | 2016-09-22 07:10 | NUR ---
Updated report to FRIDA Rodríguez. Pt has been sleeping for the most part during the shift, turned and repositioned, continue skin care protocol in a regular basis. Bedbath rendered, took pictures of all wounds, cleansed some wound with betadine, pt stated non allergic to it. Covered some wounds with mepilex with hydrogel. Sacral area applied z-guard. Left lateral side wound appears red and infected, cleansed w/ betadine, covered w/ mepilex w/ hydrogel.Endorsed to morning FRIDA.
[2016-09-22 08:00] VITALS: BP 152/80
--- NOTE | 2016-09-22 08:00 | NUR ---
RECEIVED PATIENT ASLEEP. WAKES UP WHEN SPOKEN TO. MAKE NEEDS KNOWN. NO COMPLAINTS OF PAIN AT THIS TIME. REFUSED TO EAT BREAKFAST. ENCOURAGED TO EAT. ONLY ATE ABOUT 15% OF FOOD.
[2016-09-22] MEDS: BLOOD SUGAR DIAGNOSTIC 1 EACH STRIP VI SCH ×4 (08:05→21:32)
[2016-09-22] MEDS: BOOST PLUS 237 ML LIQUID (RICH CHOCOLATE) PO SCH ×2 (08:06→17:22)
[2016-09-22] MEDS: METFORMIN HCL 500 MG TABLET PO SCH ×2 (08:06→17:27)
[2016-09-22] MEDS: ENOXAPARIN SODIUM 40 MG/0.4 ML DISP.SYRIN SQ SCH (08:12)
[2016-09-22] MEDS: ASPIRIN 81 MG TAB.CHEW PO SCH (08:12)
[2016-09-22] MEDS: DULOXETINE 30 MG CAPSULE.DR PO SCH ×2 (08:13→17:27)
[2016-09-22] MEDS: DOCUSATE SODIUM 100 MG CAPSULE PO SCH ×2 (08:13→17:27)
[2016-09-22] MEDS: LISINOPRIL 5 MG TABLET PO SCH ×2 (08:13→21:34)
[2016-09-22] MEDS: METOPROLOL SUCCINATE XL 50 MG TAB.SR.24H PO SCH (08:13)
--- NOTE | 2016-09-22 13:57 | NUR ---
IDT MEETING 09/22/16
[2016-09-22] MEDS ORDERED: SENNOSIDES 1 TABLET PO PRN (14:30)
[2016-09-22] MEDS: INSULIN REGULAR, HUMAN 300 UNIT/3 ML VIAL SQ PRN (17:26)
--- NOTE | 2016-09-22 18:50 | NUR ---
PATIENT HAD BASAL CRACKLES AUSCULTATED. O2 SAT AT 94%. WITH EDEMATOUS LOWER EXTREMITIES. INFORMED DR. KAYKAY GALVAN. BUMEX 2 MG POX1 ORDERED. FOR CBC AND BMP TOMORROW ORDERED BY DR. GALVAN.
[2016-09-22] MEDS ORDERED: BUMETANIDE 1 MG TABLET PO ONE (19:30)
[2016-09-22] MEDS: ATORVASTATIN 20 MG TABLET PO SCH (21:34)
[2016-09-23] MEDS: PANTOPRAZOLE SODIUM 40 MG TABLET.DR PO SCH (06:38)
[2016-09-23] MEDS: BLOOD SUGAR DIAGNOSTIC 1 EACH STRIP VI SCH ×4 (06:39→21:04)
--- NOTE | 2016-09-23 06:42 | NUR ---
Patient alert with periods of confusion, showed no signs of pain or discomfort throughout the night. Had no signs of respiratory distress, pulse o2 >92 with 2L of O2 via n/c. Patient slept intermittently only, repositioned for comfort and maintained clean and dry. Call light within reach. All needs attended to.
[2016-09-23 07:53] LABS: BASOPHILS % (AUTO) 0.3 % (0.0-2.0); EOSINOPHILS # (AUTO) 0.1 K/uL (0.0-0.7); EOSINOPHILS % (AUTO) 1.1 % (0.0-7.0); HEMATOCRIT 35.7 % (37-47); HEMOGLOBIN 11.6 G/DL (12.0-16.0); LYMPHOCYTES # (AUTO) 0.7 K/UL (0.8-4.8); LYMPHOCYTES % (AUTO) 11.2 % (20.5-51.5); MEAN CORPUSCULAR HEMOGLOBIN 29.5 UUG (27.0-31.0); MEAN CORPUSCULAR HGB CONC 32 g/dL (32.0-37.0); MEAN CORPUSCULAR VOLUME 91.2 FL (81.0-99.0); MONOCYTES # (AUTO) 0.4 K/UL (0.1-1.30); MONOCYTES % (AUTO) 6.4 % (0.0-11.0); NEUTROPHILS # (AUTO) 4.6 K/UL (1.8-8.9); PLATELET COUNT (AUTO) 212 K/UL (150-450); RED BLOOD CELL COUNT(AUTO) 3.92 MIL/UL (4.2-5.4); WHITE BLOOD COUNT (AUTO) 5.8 K/UL (4.0-11.2)
[2016-09-23 08:00] VITALS: BP 158/77
[2016-09-23 08:11] LABS: ALKALINE PHOSPHATASE 221 U/L (50-136); ASPARTATE AMINOTRANSFERASE 32 U/L (15-37); BILIRUBIN,TOTAL 1.6 mg/dL (0.2-1.0); CARBON DIOXIDE 22 mmol/L (21-32); CHLORIDE 105 mmol/L (98-107); GLUCOSE 162 mg/dL (74-106); POTASSIUM 3.9 mmol/L (3.5-5.1); TOTAL PROTEIN, SERUM 6.9 g/dL (6.4-8.2); UREA NITROGEN, BLOOD 18 mg/dL (7-18)
[2016-09-23 08:32] LABS: ALANINE AMINOTRANSFERASE 23 U/L (14-59)
[2016-09-23 08:56] LABS: THYROID STIMULATING HORMONE 2.056 mIU/mL (0.358-3.740)
[2016-09-23] MEDS: DULOXETINE 30 MG CAPSULE.DR PO SCH ×2 (09:36→17:45)
[2016-09-23] MEDS: BOOST PLUS 237 ML LIQUID (RICH CHOCOLATE) PO SCH ×2 (09:36→17:46)
[2016-09-23] MEDS: LISINOPRIL 5 MG TABLET PO SCH ×2 (09:36→21:08)
[2016-09-23] MEDS: METFORMIN HCL 500 MG TABLET PO SCH ×2 (09:37→17:45)
[2016-09-23] MEDS: ASPIRIN 81 MG TAB.CHEW PO SCH (09:37)
[2016-09-23] MEDS: METOPROLOL SUCCINATE XL 50 MG TAB.SR.24H PO SCH (09:37)
[2016-09-23] MEDS: DOCUSATE SODIUM 100 MG CAPSULE PO SCH ×2 (09:38→17:45)
[2016-09-23] MEDS: MODAFINIL 100 MG TABLET PO SCH (09:39)
[2016-09-23] MEDS: ENOXAPARIN SODIUM 40 MG/0.4 ML DISP.SYRIN SQ SCH (09:40)
[2016-09-23] MEDS: ACETAMINOPHEN ES 500 MG TABLET PO PRN (09:52)
[2016-09-23] MEDS: INSULIN REGULAR, HUMAN 300 UNIT/3 ML VIAL SQ PRN ×2 (12:32→21:07)
[2016-09-23 20:24] VITALS: BP 137/75
[2016-09-23] MEDS: ATORVASTATIN 20 MG TABLET PO SCH (21:09)
[2016-09-24] MEDS: BLOOD SUGAR DIAGNOSTIC 1 EACH STRIP VI SCH ×2 (06:41→12:27)
[2016-09-24] MEDS: PANTOPRAZOLE SODIUM 40 MG TABLET.DR PO SCH (06:42)
--- NOTE | 2016-09-24 06:45 | NUR ---
Patient awake and alert to self, has periods of confusion. Slept intermittently throughout the night. Showed no signs of pain or discomfort. Had to educate the patient all night regarding O2 via n/c because the patients takes it off continuously. Maintained clean and dry throughout the night, all needs attended to .
--- NOTE | 2016-09-24 08:00 | NUR ---
Awake, alert, oriented x 2, verbalized feeling better. Repositioned in bed comfortably, eating breakfast
[2016-09-24 08:06] VITALS: BP 137/69
[2016-09-24 08:28] LABS: TRIIODOTHYRONINE, FREE 1.7 pg/mL (2.0-4.4)
[2016-09-24] MEDS: MODAFINIL 100 MG TABLET PO SCH (08:30)
[2016-09-24] MEDS: METFORMIN HCL 500 MG TABLET PO SCH (08:30)
[2016-09-24] MEDS: DOCUSATE SODIUM 100 MG CAPSULE PO SCH (08:31)
[2016-09-24] MEDS: ASPIRIN 81 MG TAB.CHEW PO SCH (08:31)
[2016-09-24] MEDS: DULOXETINE 30 MG CAPSULE.DR PO SCH (08:31)
[2016-09-24 08:32] VITALS: BP 137/69
[2016-09-24] MEDS: LISINOPRIL 5 MG TABLET PO SCH (08:32)
[2016-09-24] MEDS: METOPROLOL SUCCINATE XL 50 MG TAB.SR.24H PO SCH (08:32)
[2016-09-24] MEDS: INSULIN REGULAR, HUMAN 300 UNIT/3 ML VIAL SQ PRN (08:34)
[2016-09-24] MEDS: ENOXAPARIN SODIUM 40 MG/0.4 ML DISP.SYRIN SQ SCH (08:34)
[2016-09-24] MEDS: BOOST PLUS 237 ML LIQUID (RICH CHOCOLATE) PO SCH (09:01)
[2016-09-24] MEDS ORDERED: DOCU-170 PO (11:15)
[2016-09-24] MEDS ORDERED: METF500T4 PO (11:15)
[2016-09-24] MEDS ORDERED: SENN8.6T6 PO (11:15)
[2016-09-24] MEDS ORDERED: MODA100T5 PO (11:15)
[2016-09-24] MEDS ORDERED: METO50TA7 PO (11:15)
[2016-09-24] MEDS ORDERED: ATOR20TA PO (11:15)
[2016-09-24] MEDS ORDERED: LISI-607 PO (11:15)
--- NOTE | 2016-09-24 14:03 | NUR ---
With discharge order to SNF. Report given to BAIRON of [facility]. Derik, son aware, at bedside. Discharged per gurney/ambulance in fair condition, not in distress, afebrile.
== END 2016-09-24 14:20 | DRG 559 ==
PROVIDERS: ADMIT Physical Medicine & Rehabilitation Pain Medicine; ATTEND Physical Medicine & Rehabilitation Pain Medicine
DX: S72.002D Fracture of unspecified part of neck of left femur, subsequent encounter for closed fracture with routine healing (principal); E43 Unspecified severe protein-calorie malnutrition; G93.49 Other encephalopathy; I13.0 Hypertensive heart and chronic kidney disease with heart failure and stage 1 through stage 4 chronic kidney disease, or unspecified chronic kidney disease; D68.59 Other primary thrombophilia; W19.XXXD Unspecified fall, subsequent encounter; E11.9 Type 2 diabetes mellitus without complications; I50.9 Heart failure, unspecified; J44.9 Chronic obstructive pulmonary disease, unspecified; N18.9 Chronic kidney disease, unspecified; I25.2 Old myocardial infarction; M19.90 Unspecified osteoarthritis, unspecified site; R26.9 Unspecified abnormalities of gait and mobility; R41.0 Disorientation, unspecified; Z86.73 Personal history of transient ischemic attack (TIA), and cerebral infarction without residual deficits; Z96.642 Presence of left artificial hip joint; Z87.891 Personal history of nicotine dependence; R53.1 Weakness; R13.10 Dysphagia, unspecified; E87.6 Hypokalemia; Z68.22 Body mass index [BMI] 22.0-22.9, adult; D64.9 Anemia, unspecified; I95.89 Other hypotension; G89.29 Other chronic pain; R41.89 Other symptoms and signs involving cognitive functions and awareness
CPT/HCPCS: 36415; 70450; 70551; 71010; 83550; 83735; 84100; 84443; 84480; 84481; 85025; 92526; 92610; 97110; 97112; 97116; 97530; 97535; A4217; A4663; J1650; J1815